=== PATIENT | female | born 1980 | race Two or more races ===

== ENCOUNTER 2024-11-07 17:12 | Emergency (ER) | payer MEDICAID, MEDICARE, OTHER ==
[~2024-11-07] VITALS: Ht 149.9 cm; Wt 59.2 kg
[2024-11-07 17:13] VITALS: TEMP 99
--- NOTE | 2024-11-07 18:22 | ED.PDOC ---
History of Present Illness HPI Comments 44 y/o F, presents to the ED for CC of right-sided facial swelling. Patient states, she has been experiencing right sided facial swelling sudden onset, yesterday (11/06/24). Patient reports, that she is overdue for dental work. Patient denies any oral discharge, foul taste, fever, or ear ringing. No other symptoms or modifying factors are present at this time. 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 Family History Family History: Unknown Social History Smoker: Non-Smoker Alcohol: Denies ETOH Use Drugs: Denies Drug Use Lives In: Home Constitutional: denies: chills, diaphoresis, fatigue, fever, malaise, sweats, weakness, others EENTM: reports: others (right sided facial swelling); denies: blurred vision, double vision, ear bleeding, ear discharge, ear drainage, ear pain, ear ringing, eye pain, eye redness, hearing loss, mouth pain, mouth swelling, nasal discharge, nose bleeding, nose congestion, nose pain, photophobia, tearing, throat pain, throat swelling, voice changes Respiratory: denies: cough, hemoptysis, orthopnea, SOB at rest, shortness of breath, SOB with excertion, stridor, wheezing, others Cardiovascular: denies: chest pain, dizzy spells, diaphoresis, Dyspnea on exertion, edema, irregular heart beat, left arm pain, lightheadedness, palpitations, PND, syncope, others Gastrointestinal: denies: abdomen distended, abdominal pain, blood streaked bowels, constipated, diarrhea, dysphagia, difficulty swallowing, hematemesis, melena, nausea, poor appetite, poor fluid intake, rectal bleeding, rectal pain, vomiting, others Genitourinary: denies: abnormal vagina bleeding, burning, dyspareunia, dysuria, flank pain, frequency, hematuria, incontinence, pain, , vagina discharge, urgency, others Neurological: denies: dizziness, fainting, headache, left sided numbness, left sided weakness, numbness, paresthesia, pre-existing deficit, right sided numbness, right sided weakness, seizure, speech problems, tingling, tremors, weakness, others Musculoskeletal: denies: back pain, gout, joint pain, joint swelling, muscle pain, muscle stiffness, neck pain, others Integumetry: denies: bruises, change in color, change in hair/nails, dryness, laceration, lesions, lumps, rash, wounds, others Allergic/Immunocompromised: denies: Difficulty Healing, Frequent Infections, Hives, Itching, others Hematologic/Lymphatic: denies: anemia, blood clots, easy bleeding, easy bruising, swollen glands, others Endocrine: denies: excessive hunger, excessive sweating, excessive thirst, excessive urination, flushing, intolerance to cold, intolerance to heat, unexplained weight gain, unexplained weight loss, others Psychiatric: denies: anxiety, bipolar disorder, depression, hopeless, panic disorder, schizophrenia, sleepless, suicidal, others All Other Systems: Reviewed and Negative Physical Exam General Appearance: No Apparent Distress, Normal HEENT: Normal ENT Inspection, Pharynx Normal, Other (Right sided facial s welling) Neck: Full Range of Motion, Non-Tender, Normal, Normal Inspection Respiratory: Chest Non-Tender, Lungs Clear, No Accessory Muscle Use, No Respiratory Distress, Normal Breath Sounds Cardiovascular: No Edema, No Murmur, No Gallop, Normal Peripheral Pulses, Regular Rate/Rhythm Breast Exam: Deferred Gastrointestinal: No Organomegaly, Non Tender, No Pulsatile Mass, Normal Bowel Sounds, Soft Genitalia: Deferred Pelvic: Deferred Rectal: Deferred Extremities: No calf tenderness, Normal capillary refill, Normal inspection, Normal range of motion, Non-tender, No pedal edema Musculoskeletal : Apperance: Normal Neurologic: Alert, blow down helper II-XII nml as Tested, No Motor Deficits, Normal Affect, Normal Mood, No Sensory Deficits Cerebellar Function: Normal Reflexes: Normal Skin: Dry, Normal Color, Warm Lymphatic: No Adenopathy Was a procedure done? Was a procedure done?: No Differential Dx Considerations may include: DENTAL CARIES, TOOTH ABSCESS X-Ray, Labs, Meds, VS Vital Signs Date Time Temp Pulse Resp B/P (MAP) Pulse Ox O2 Delivery O2 Flow Rate FiO2 11/07/24 17:13 99.0 114 18 148/87 99 99.0 Time of 1ST Reevaluation: 18:35 Reevaluation 1ST: Unchanged Patient Education/Counseling: Diagnosis, Treatment Family Education/Counseling: No Family Present SEPSIS Sepsis Screen Date sepsis recognized/suspect: Nov 07, 2024 Time Sepsis recognized/suspect: 1712 Recent Procedure: No On Antibiotic Therapy: No Respiratory Rate >20: No Heart Rate >90: No Temp<36 C (96.8 F) or >38.3 C: No SBP <90 or MAP <65 mmHG: No New Acute Mental Status Change: No Is the patient on CPAP, BIPAP,: No Vital Signs Date Time Temp Pulse Resp B/P (MAP) Pulse Ox O2 Delivery O2 Flow Rate FiO2 11/07/24 17:13 99.0 114 18 148/87 99 99.0 Departure 1 Departure Time of Disposition: 18:45 Impression: Primary Impression: Dental abscess Disposition: HOME / SELF CARE / HOMELESS Condition: Fair e-Prescriptions Ibuprofen Micronized (Ibuprofen) 600 Mg Tab 600 MG PO TID PRN, #30 TAB Prov: MAYUR LAYTON 11/07/24 Amoxicillin & Pot Clavulanate (AUGMENTIN TABLET) 875 Mg Tb 875 MG PO BID for 10 Days, #20 TAB Prov: MAYUR LAYTON 11/07/24 Discharged With: Self Critical Care Note Critical Care Time?: No Stability Stability form required: No Heart Score Heart Score: Heart Score Response (Comments) Value History N/A 0 EKG N/A 0 Age N/A 0 Risk Factors N/A 0 Troponin N/A 0 Total 0 I personally scribed for MAYUR LAYTON ([email or web address]) on 11/07/24 at 18:22. Electronically submitted by Sheron Fragoso ([email or web address]). MAYUR LAYTON Nov 07, 2024 18:22
[2024-11-07] MEDS ORDERED: AUG875T PO (18:46)
[2024-11-07] MEDS ORDERED: IBUP1TAB5 PO (18:46)
[2024-11-07 18:57] VITALS: BP 121/85; PULSE 98; RESP 18; O2SAT 99
[2024-11-07] MEDS ORDERED: KETOROLAC TROMETH 30 MG/ML 1ML VIAL IM ONE (19:00)
== END 2024-11-07 18:54 | disposition home or self-care (01) ==
LOC: ER 17:12
DX: K04.7 Periapical abscess without sinus (principal); Z79.899 Other long term (current) drug therapy
CPT/HCPCS: J1885

== ENCOUNTER 2025-03-11 17:17 | Emergency (ER) | payer OTHER ==
[~2025-03-11] VITALS: Ht 149.9 cm; Wt 56.5 kg
[~2025-03-11 17:17] MED LIST: AUG875T PO; IBUP1TAB5 PO
--- NOTE | 2025-03-11 17:38 | ECG ---
[facility] Test Date: 2025-03-11 Test Time: 17:29:07 Pat Name: ANÍBAL ROTHMAN Department: ED Room: Gender: F Psychology Clinician: MR WHITEHEADB: 1980 Requested By: KAREEN WEBBER Order Number: [id number] Reading MD: Rom Serrato Measurements Intervals Orient Rate: 112 P: 82 LA: 112 QRS: 99 QRSD: 67 T: 0 QT: 391 QTc: 534 Interpretive Statements Sinus tachycardia Borderline right axis deviation Nonspecific T abnormalities, lateral leads Prolonged QT interval Electronically Signed On 03-12-2025 15:28:42 PST by Rom Serrato Please click the below link to view image of tracing.
--- NOTE | 2025-03-11 19:35 | ED.PDOC ---
SOB-HPI HPI Comments 44 year-old female presents to the ED with a chief complaint of SOB and cough for X2 weeks. Patient reports being seen by her PCP recently for a sinus infection, where she was not diagnosed any antibiotics. Patient has a PMHx of CML, Thyroid, and HTN. There are no further complaints or modifying factors at this time. Patient denies symptoms of palpitations, chest pain, dizziness, weakness, or phlegm. 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 Family History Family History: Unknown Social History Smoker: Non-Smoker Alcohol: Denies ETOH Use Drugs: Denies Drug Use Lives In: Home Constitutional: denies: chills, diaphoresis, fatigue, fever, malaise, sweats, weakness, others EENTM: denies: blurred vision, double vision, ear bleeding, ear discharge, ear drainage, ear pain, ear ringing, eye pain, eye redness, hearing loss, mouth pain, mouth swelling, nasal discharge, nose bleeding, nose congestion, nose pain, photophobia, tearing, throat pain, throat swelling, voice changes, others Respiratory: reports: cough, SOB at rest, shortness of breath, SOB with excertion; denies: hemoptysis, orthopnea, stridor, wheezing, others Cardiovascular: denies: chest pain, dizzy spells, diaphoresis, Dyspnea on exertion, edema, irregular heart beat, left arm pain, lightheadedness, palpitations, PND, syncope, others Gastrointestinal: denies: abdomen distended, abdominal pain, blood streaked bowels, constipated, diarrhea, dysphagia, difficulty swallowing, hematemesis, melena, nausea, poor appetite, poor fluid intake, rectal bleeding, rectal pain, vomiting, others Neurological: denies: dizziness, fainting, headache, left sided numbness, left sided weakness, numbness, paresthesia, pre-existing deficit, right sided numbness, right sided weakness, seizure, speech problems, tingling, tremors, weakness, others Musculoskeletal: denies: back pain, gout, joint pain, joint swelling, muscle pain, muscle stiffness, neck pain, others Integumetry: denies: bruises, change in color, change in hair/nails, dryness, laceration, lesions, lumps, rash, wounds, others Allergic/Immunocompromised: denies: Difficulty Healing, Frequent Infections, Hives, Itching, others Hematologic/Lymphatic: denies: anemia, blood clots, easy bleeding, easy bruis ing, swollen glands, others Endocrine: denies: excessive hunger, excessive sweating, excessive thirst, exc essive urination, flushing, intolerance to cold, intolerance to heat, unexplained weight gain, unexplained weight loss, others Psychiatric: denies: anxiety, bipolar disorder, depression, hopeless, panic disorder, schizophrenia, sleepless, suicidal, others All Other Systems: Reviewed and Negative Physical Exam General Appearance: No Apparent Distress, Obese HEENT: Normal ENT Inspection, Pharynx Normal, TMs Normal Neck: Full Range of Motion, Non-Tender, Normal, Normal Inspection Respiratory: Chest Non-Tender, Lungs Clear, No Accessory Muscle Use, No Respiratory Distress, Normal Breath Sounds Cardiovascular: No Edema, No JVD, No Murmur, No Gallop, Normal Peripheral Pulses, Regular Rate/Rhythm Breast Exam: Deferred Gastrointestinal: No Organomegaly, Non Tender, No Pulsatile Mass, Normal Bowel Sounds, Soft Genitalia: Deferred Pelvic: Deferred Rectal: Deferred Extremities: No calf tenderness, Normal capillary refill, Normal inspection, Normal range of motion, Non-tender, No pedal edema Musculoskeletal : Apperance: Normal Neurologic: Alert, 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 Was a procedure done?: No Differential Dx Differential Diagnosis: Anxiety, Asthma, Bronchitis, CHF, COPD, Hypertension, Pneumonia, Sinusitis, Allergic Rhinitis X-Ray, Labs, Meds, VS Vital Signs Date Time Temp Pulse Resp B/P (MAP) Pulse Ox O2 Delivery O2 Flow Rate FiO2 03/11/25 21:54 16 Room Air 03/11/25 20:20 98.5 104 16 107/82 (90) 95 98.5 03/11/25 19:38 112 03/11/25 17:29 112 03/11/25 17:19 96.0 113 18 134/[address] [address] Ph: [phone] DIAGNOSTIC IMAGING Diagnostic Imaging Report : [id number] Signed PATIENT: ANÍBAL ROTHMAN ACCT: [id number] UNIT: [id number] : 1980 LOC: ER ROOM / BED: / AGE / SEX: 44 / F ADM STATUS: REG ER SERVICE 04 ORDERING PHYSICIAN: TAO RICE MD PROCEDURE(s): CXR1 - CHEST XRAY 1 VIEW REASON: sob, cough ORDER NUMBER(s): [id number], ACCESSION NUMBER(s): [id number] CHEST RADIOGRAPH INDICATION: sob, cough TECHNIQUE: Single frontal view of the chest was obtained COMPARISON: None FINDINGS: Cardiac silhouette is mildly enlarged with slight prominence of the vasculature. Small bilateral pleural effusions with bibasilar atelectasis/ consolidation, left worse than right. IMPRESSION: Small bilateral pleural effusions, left larger than right, with bibasilar atelectasis / consolidation. Please correlate with any concern for pneumonia. X-Ray, Labs, Meds, VS Comment Previous history reviewed: Thyroid, CML, HTN The following tests were ordered, and results were reviewed by me: N/A Additional Information was gathered from interviewing the following independent historians: N/A I reviewed and agreed with the following test results read by other providers: Chest Xray I discussed treatment and results with medical personnel and: patient Comprehensive systems review obtained and negative except for what is stated in the HPI. Time of 1ST Reevaluation: 19:42 Reevaluation 1ST: Unchanged Patient Education/Counseling: Diagnosis, Treatment Family Education/Counseling: No Family Present Comments This is a patient who has had symptoms of a URI for weeks. She was diagnosed with a sinus infection but was not prescribed any antibiotics. Now patient is coughing reporting shortness of breath. However her saturation is within normal limits and chest x-ray shows a small area that could be pneumonia. Otherwise she is not septic and vital signs are stable. I will start her on Z-Yobani she is stable for discharge SEPSIS Sepsis Screen Date sepsis recognized/suspect: Mar 11, 2025 Time Sepsis recognized/suspect: 1718 Recent Procedure: No On Antibiotic Therapy: No Respiratory Rate >20: No Heart Rate >90: Yes Temp<36 C (96.8 F) or >38.3 C: No SBP <90 or MAP <65 mmHG: No New Acute Mental Status Change: No Is the patient on CPAP, BIPAP,: No Physician Orders Chest Xray 1 View (03/11/25 19:05) Vital Signs Date Time Temp Pulse Resp B/P (MAP) Pulse Ox O2 Delivery O2 Flow Rate FiO2 03/11/25 21:54 16 Room Air 03/11/25 20:20 98.5 104 16 107/82 (90) 95 98.5 03/11/25 19:38 112 03/11/25 17:29 112 03/11/25 17:19 96.0 113 18 134/97 93 96.0 Departure 1 Departure Time of Disposition: 22:36 Impression: Primary Impression: Pneumonia Disposition: HOME / SELF CARE / HOMELESS Condition: Good e-Prescriptions Azithromycin (Zithromax Z-Yobani) 250 Mg Tab 250 MG PO DAILY for 5 Days, #1 PACK Prov: TAO RICE MD 03/11/25 Discharged With: Self Critical Care Note Critical Care Time?: No Stability Stability form required: No Heart Score Heart Score: Heart Score Response (Comments) Value History Slightly Suspicious 0 EKG Normal 0 Age <45 0 Risk Factors No known risk factors 0 Troponin N/A 0 Total 0 I personally scribed for TAO RICE MD (SADE) on 03/11/25 at 19:35. Electronically submitted by Luisa Burns ([employer]). I personally scribed for TAO RICE MD (SADE) on 03/11/25 at 19:38. Electronically submitted by Luisa Burns ([employer]). I personally scribed for TAO RICE MD (SADE) on 03/11/25 at 19:40. Electronically submitted by Luisa Burns ([employer]). I personally scribed for TAO RICE MD ([facility]) on 03/11/25 at 20:23. Electronically submitted by Luisa Burns ([facility]). TAO RICE MD Mar 11, 2025 19:35
--- NOTE | 2025-03-11 19:59 | DVH ---
CHEST RADIOGRAPH INDICATION: sob, cough TECHNIQUE: Single frontal view of the chest was obtained COMPARISON: None FINDINGS: Cardiac silhouette is mildly enlarged with slight prominence of the vasculature. Small bilateral pleural effusions with bibasilar atelectasis/ consolidation, left worse than right. IMPRESSION: Small bilateral pleural effusions, left larger than right, with bibasilar atelectasis / consolidation. Please correlate with any concern for pneumonia.
[2025-03-11] MEDS ORDERED: AZITTAB PO (22:38)
[2025-03-11 23:17] VITALS: BP 111/80; PULSE 102; RESP 18; TEMP 98.5; O2SAT 92
== END 2025-03-11 23:20 | disposition home or self-care (01) ==
LOC: ER 17:17
DX: J18.9 Pneumonia, unspecified organism (principal); I10 Essential (primary) hypertension
CPT/HCPCS: 71045; 93005